=== PATIENT | male | born 1960 | race Caucasian/White ===

== ENCOUNTER 2020-05-01 12:22 | Inpatient (IN) | payer BC ==
[~2020-05-01] VITALS: Ht 172.7 cm; Wt 84.1 kg
[2020-05-01 14:55] VITALS: Ht 172.7 cm; Wt 84.1 kg
[2020-05-01 20:00] VITALS: BP 123/78
--- NOTE | 2020-05-01 20:05 | NUR ---
SPOKE WITH PT FROM DOOR AND HE MADE NEEDS KNOW
--- NOTE | 2020-05-01 20:30 | NUR ---
BED LOW AND CALL LIGHT IN PLACE TERRI BLOOD CULTURES X2 FROM LEFT THEN RT AC
[2020-05-01 20:58] LABS: BASOPHILS 0.2 % (0-2); EOSINOPHILS 15.6 % (0-7); HEMATOCRIT 43.5 % (42.0-54.0); HEMOGLOBIN 14.4 g/dL (13.5-17.5); IMMATURE GRANULOCYTES 0.2 % (0-5); LYMPHOCYTES 17.3 % (15-50); MCH 31.9 pg (26.0-34.0); MCHC 33.1 g/dL (31.0-37.0); MCV 96.2 fL (80.0-100.0); MEAN PLATELET VOLUME 8.4 fL (7.4-10.4); MONOCYTES 4.1 % (2-11); NEUTROPHILS 62.6 % (40-80); PLATELET COUNT 254 10x3/uL (130-400); RBC 4.52 10x6/uL (4.20-6.10); RDW 12.7 % (11.5-14.5); WBC 9.4 10x3/uL (4.8-10.8)
[2020-05-01 21:00] LABS: INR 0.98 (0.85-1.17)
[2020-05-01 21:13] LABS: ALBUMIN 3.8 g/dL (3.4-5.0); ANION GAP 7.1 mmol/L (8-16); BILIRUBIN - TOTAL 0.24 mg/dL (0.2-1.3); CALCIUM 8.3 mg/dL (8.5-10.1); CARBON DIOXIDE 34.1 mmol/L (21.0-32.0); CREATININE - SERUM 1.3 mg/dL (0.6-1.3); POTASSIUM - SERUM 4.2 mmol/L (3.5-5.1); PROTEIN - SERUM 6.9 g/dL (6.4-8.2)
--- NOTE | 2020-05-01 22:14 | NUR ---
PT IS NEGATIVE AND REMOVED FROM ISOLATION
[2020-05-02 04:00] VITALS: BP 139/74
[2020-05-02 06:22] LABS: BASOPHILS 0.1 % (0-2); EOSINOPHILS 0.4 % (0-7); HEMATOCRIT 44.3 % (42.0-54.0); HEMOGLOBIN 14.8 g/dL (13.5-17.5); IMMATURE GRANULOCYTES 0.5 % (0-5); LYMPHOCYTES 11.6 % (15-50); MCH 31.4 pg (26.0-34.0); MCHC 33.4 g/dL (31.0-37.0); MEAN PLATELET VOLUME 8.7 fL (7.4-10.4); MONOCYTES 0.8 % (2-11); NEUTROPHILS 86.6 % (40-80); PLATELET COUNT 292 10x3/uL (130-400); RBC 4.71 10x6/uL (4.20-6.10); RDW 12.5 % (11.5-14.5); WBC 7.7 10x3/uL (4.8-10.8)
[2020-05-02 06:35] LABS: ANION GAP 10.6 mmol/L (8-16); CALCIUM 8.7 mg/dL (8.5-10.1); CARBON DIOXIDE 30.8 mmol/L (21.0-32.0); CREATININE - SERUM 1.1 mg/dL (0.6-1.3); MAGNESIUM - SERUM 2.1 mg/dL (1.8-2.4); POTASSIUM - SERUM 4.4 mmol/L (3.5-5.1)
[2020-05-02 06:42] LABS: MCV 94.1 fL (80.0-100.0)
--- NOTE | 2020-05-02 07:10 | NUR ---
REPORT RECEIVED FROM SUEDE CLEANER AND PATIENT CARE ASSUMED. PATIENT LAYING IN BED AWAKE, ALERT AND ORIENTED X 4. PATIENT IS STABLE AND VSS. PATIENT DENIES ANY NEEDS OR PAIN. WILL CONTINUE WITH PLAN OF CARE. SR UP X 2 BED IN LOW POSITION AND CALL LIGHT IN REACH.
[2020-05-02] MEDS ORDERED: HYDROCODON-ACE1 EA10 PO (07:43)
[2020-05-02] MEDS ORDERED: CIPRO500 MG PO (07:43)
[2020-05-02] MEDS ORDERED: LOSARTAN-HCTZ1 EAC1 PO (07:43)
[2020-05-02] MEDS ORDERED: MOBIC7.5 MG PO (07:44)
[2020-05-02] MEDS ORDERED: CARDURA2 MG PO (07:44)
[2020-05-02] MEDS ORDERED: LOPID600 MG PO (07:45)
[2020-05-02] MEDS ORDERED: FLOMAX0.4 MG PO (07:45)
[2020-05-02] MEDS ORDERED: GLUCOPHAGE1000 MG PO (07:46)
--- NOTE | 2020-05-02 10:55 | NUR ---
PATIENT UP TO SHOWER. PATIENT TOLERATED WELL.
[2020-05-02 20:00] VITALS: BP 146/78
--- NOTE | 2020-05-03 02:01 | NUR ---
I have reviewed this patient and I concur with the Shift Assessment completed by the Licensed Practical Nurse today this shift.
--- NOTE | 2020-05-03 02:11 | NUR ---
RESTING WITH EYES CLOSED, RESPERATIONS EVEN, NO S/S DISTRESS NOTED.
[2020-05-03 06:45] LABS: BASOPHILS 0 % (0-2); EOSINOPHILS 0 % (0-7); HEMATOCRIT 42.2 % (42.0-54.0); HEMOGLOBIN 14.1 g/dL (13.5-17.5); IMMATURE GRANULOCYTES 0.4 % (0-5); LYMPHOCYTES 7.6 % (15-50); MCH 31.5 pg (26.0-34.0); MCHC 33.4 g/dL (31.0-37.0); MCV 94.4 fL (80.0-100.0); MEAN PLATELET VOLUME 8.4 fL (7.4-10.4); MONOCYTES 4.8 % (2-11); NEUTROPHILS 87.2 % (40-80); PLATELET COUNT 291 10x3/uL (130-400); RBC 4.47 10x6/uL (4.20-6.10); RDW 12.7 % (11.5-14.5)
[2020-05-03 06:50] LABS: WBC 17.2 10x3/uL (4.8-10.8)
[2020-05-03 07:07] LABS: CALC OSMOLALITY 287 mosm/kg (275-300); CALCIUM 8.7 mg/dL (8.5-10.1); CHLORIDE - SERUM 105 mmol/L (98-107); GLUCOSE 167 mg/dL (74-106); MAGNESIUM - SERUM 2.2 mg/dL (1.8-2.4); SODIUM 141 mmol/L (136-145); UREA NITROGEN 20 mg/dL (7-18); eGFR NON AFRICAN AMERICAN 82 mL/min (90-120)
--- NOTE | 2020-05-03 07:10 | NUR ---
REPORT RECEIVED FROM MICROPHONE OPERATOR ANDPATIENT CARE ASSUMED. PATIENT LAYING IN BED ON BACK WITH EYS CLOSED AND BREATHING EVENLY. WILL CONTINUE WITH PLAN OF CARE . SR UPX 2 BED IN LOW POSITION AND CALL LIGHT IN REACH.
[2020-05-03 10:05] VITALS: BP 134/70
[2020-05-03 14:08] VITALS: BP 127/68
--- NOTE | 2020-05-03 14:35 | NUR ---
PATIENT HAS WALKED UNIT MULTIPLE TIMES AND TOLERATED WELL. ORDER RECEIVED FOR AND TELEMETRY PLACED. PATIENT SITTING UP IN BED WATCHING TV . PATIENT IS STABLE AND VSS. PATIENT DENIES ANY NEEDS OR PAIN. WILL CONTINUE TO MONITOR. SR UP X 2 BED IN LOW POSITON AND CALL LIGHT IN REACH.
[2020-05-03 18:23] VITALS: BP 122/71
--- NOTE | 2020-05-03 18:42 | NUR ---
PATIENT AMBULATING IN HW TOLERATING WELL.
--- NOTE | 2020-05-03 19:27 | NUR ---
SPOKE WITH PT AT LENGTH AND PROVIDED SOME NEEDS, BED LOW AND LOCKED IV LINE PATENT AT 30ML/HR BED LOW AND LOCKED AND CALL LIGHT IS IN REACH
[2020-05-03 20:00] VITALS: BP 104/53
[2020-05-04 04:00] VITALS: BP 129/69
--- NOTE | 2020-05-04 05:13 | NUR ---
I have reviewed this patient and I concur with the Shift Assessment completed by the Licensed Practical Nurse today this shift.
[2020-05-04 06:21] LABS: BASOPHILS 0.1 % (0-2); EOSINOPHILS 0 % (0-7); HEMATOCRIT 42.4 % (42.0-54.0); IMMATURE GRANULOCYTES 0.8 % (0-5); LYMPHOCYTES 6.2 % (15-50); MCH 31.4 pg (26.0-34.0); MCV 95.1 fL (80.0-100.0); MEAN PLATELET VOLUME 8.6 fL (7.4-10.4); MONOCYTES 4.5 % (2-11); NEUTROPHILS 88.4 % (40-80); PLATELET COUNT 310 10x3/uL (130-400); RBC 4.46 10x6/uL (4.20-6.10); RDW 12.9 % (11.5-14.5); WBC 17.1 10x3/uL (4.8-10.8)
[2020-05-04 06:43] LABS: ANION GAP 9.9 mmol/L (8-16); CALCIUM 8.4 mg/dL (8.5-10.1); CARBON DIOXIDE 30.1 mmol/L (21.0-32.0); CREATININE - SERUM 1.1 mg/dL (0.6-1.3); MAGNESIUM - SERUM 2.2 mg/dL (1.8-2.4)
--- NOTE | 2020-05-04 07:10 | NUR ---
REPORT RECEIVED FROM SENIOR IT ASSISTANT AND PATIENT CARE ASSUMED. PATIENT LAYING IN BED ON BACK AWAKE, ALERT AND OREINTED X 4. PATIENT IS STABLE AND VSS. PATIENT DENIES ANY NEEDS OR PAIN. WILL CONTINUE WITH PLAN OF CARE. SR UP X 2 BED IN LOW POSITION AND CALL LIGHT IN REACH.
[2020-05-04 10:01] VITALS: BP 123/81
--- NOTE | 2020-05-04 11:19 | NUR ---
PATIENT SITTING UP IN BED WATCHING TV. PATIENT IS STABLE AND VSS. PATIENT DENIES ANY NEEDS OR PAIN. WILL CONTINUE TO [facility]. SR UP X 2 BED IN LOW POSITION AND CALL LIGHT IN REACH.
[2020-05-04] MEDS ORDERED: LEVOFLOXACIN500 MG PO (12:00)
[2020-05-04] MEDS ORDERED: AUGMENTIN 875-11 TAB PO (12:01)
[2020-05-04] MEDS ORDERED: PREDNISONE10 MG PO (12:02)
[2020-05-04] MEDS ORDERED: SYMBICORT 16010.2 GM INH (13:14)
[2020-05-04] MEDS ORDERED: CHANTIX0.5 MG PO (14:14)
== END 2020-05-04 14:11 | disposition home or self-care (01) | DRG 202 ==
LOC: D.M2 12:22
PROVIDERS: Family Medicine; ADMIT Family Medicine; ATTEND Family Medicine
DX: J20.9 Acute bronchitis, unspecified (principal); J18.9 Pneumonia, unspecified organism; G47.33 Obstructive sleep apnea (adult) (pediatric); E11.65 Type 2 diabetes mellitus with hyperglycemia; E78.5 Hyperlipidemia, unspecified; F90.9 Attention-deficit hyperactivity disorder, unspecified type; E29.1 Testicular hypofunction; Z87.891 Personal history of nicotine dependence